=== PATIENT | male | born 1930 ===

== ENCOUNTER 2018-06-13 16:09 | Inpatient (IN) | payer MEDICARE, BC ==
[~2018-06-13] VITALS: Ht 175.3 cm; Wt 94.8 kg
[2018-06-13] MEDS ORDERED: acetaminophen 325mg tablet PO STA (16:38)
[2018-06-13] MEDS ORDERED: normal saline 1000ML IV soln IV ONE (16:40)
[2018-06-13 17:02] LABS: BASOPHILS # (AUTO) 0.1 X10'3 (0-0.2); BASOPHILS % (AUTO) 0.4 % (0-1); EOSINOPHILS % (AUTO) 0 % (0-6); HEMATOCRIT 42.3 % (42.0-52.0); HEMOGLOBIN 13.8 g/dl (14.0-17.9); LYMPHOCYTES # (AUTO) 0.4 X10'3 (1.1-4.8); MEAN CORPUSCULAR HEMOGLOBIN 29.3 PG (27.0-31.0); MEAN CORPUSCULAR HGB CONC 32.8 % (33.0-36.5); MEAN CORPUSCULAR VOLUME 89.3 FL (78-98); MEAN PLATELET VOLUME 6.3 FL (7.4-10.4); MONOCYTES # (AUTO) 0.6 X10'3 (0-0.9); MONOCYTES % (AUTO) 3.2 % (2-12); NEUTROPHILS # (AUTO) 18.9 X10'3 (1.8-7.7); NEUTROPHILS % (AUTO) 94.4 % (42-75); PLATELET COUNT 260 X10'3 (140-440); RED BLOOD COUNT 4.73 X10'6 (4.70-6.10); RED CELL DISTRIBUTION WIDTH 13.3 % (11.5-14.5)
[2018-06-13 17:17] LABS: ALANINE AMINOTRANSFERASE 27 U/L (12-78); ALBUMIN 3.7 G/DL (3.4-5.0); ALKALINE PHOSPHATASE 91 IU/L (46-116); ANION GAP 11 (8-16); ASPARTATE AMINO TRANSFERASE 15 U/L (10-37); BLOOD UREA NITROGEN 22 MG/DL (7-18); BUN/CREATININE RATIO 18.5 (5.4-32.0); CALCIUM 8.7 MG/DL (8.5-10.1); CHLORIDE 96 MMOL/L (99-107); CREATININE 1.19 MG/DL (0.60-1.10); GLUCOSE 142 MG/DL (70-104); POTASSIUM 3.8 MMOL/L (3.5-5.1); SODIUM 130 MMOL/L (135-145); TOTAL CARBON DIOXIDE 23.3 MMOL/L (24-32); TOTAL PROTEIN 7.4 G/DL (6.4-8.2); eGFR 58 ML/MIN
[2018-06-13] MEDS ORDERED: CefTRIAXone 2gm/D5W 50ml 50 ML IV ONE (17:45)
[2018-06-13] MEDS ORDERED: azithromycin/NS 500mg/250ml 250 ML IV ONE (17:45)
[2018-06-13 17:46] LABS: PLATELET ESTIMATE NORMAL; TOTAL CELLS COUNTED 100
[2018-06-13 17:50] LABS: CLARITY,URINE CLEAR (Clear); GLUCOSE, URINE NEGATIVE (Neg); KETONES,URINE TRACE mg/dl (Neg); LEUKOCYTE ESTERASE ,URINE NEGATIVE (Neg); NITRITES, URINE NEGATIVE (Neg); OCCULT BLOOD,URINE SMALL (Neg); PH,URINE 5.5 (4.8-8.0); PROTEIN,URINE 100 mg/dl (Neg)
[2018-06-13 17:52] LABS: COLOR,URINE AMBER (Yellow); UA COLLECTION TYPE VOIDED
[2018-06-13 18:02] LABS: RBC,URINE 0-2 /HPF (0-2); WBC,URINE 0-4 /HPF (0-4)
[2018-06-13 18:03] LABS: BACTERIA,URINE NONE SEEN /HPF (Neg); COARSE GRANULAR CAST 0-3 /LPF (NEGATIVE); MUCUS STRANDS MODERATE /LPF (Neg); SQUAMOUS EPITHELIAL CELL,UR FEW /LPF (FEW)
[2018-06-13] MEDS ORDERED: MELO-100 PO (18:08)
[2018-06-13] MEDS ORDERED: LISI1TAB11 PO (18:08)
[2018-06-13] MEDS ORDERED: SERT25TA PO (18:09)
[2018-06-13] MEDS ORDERED: CHOL10002 PO (18:09)
[2018-06-13] MEDS ORDERED: ASPI-1264 PO (18:10)
[2018-06-13] MEDS ORDERED: ATOR10TA87 PO (18:10)
[2018-06-13] MEDS ORDERED: FISH OIL PO (18:11)
[2018-06-13] MEDS ORDERED: acetaminophen 325mg tablet PO PRN (20:20)
[2018-06-13] MEDS ORDERED: magnesium 1gm/100ml D5W IVPB 100 ML IV PRN (20:20)
[2018-06-13] MEDS ORDERED: magnesium Cl slow-release 64mg tablet PO PRN (20:20)
[2018-06-13] MEDS ORDERED: ondansetron/PF 4mg/2ml inj IV PRN (20:20)
[2018-06-13] MEDS ORDERED: potassium Cl 40MEQ/NS 500ml 500 ML IV PRN ×2 (20:20)
[2018-06-13] MEDS ORDERED: potassium Cl 20 mEq SR tablet PO PRN (20:20)
[2018-06-13] MEDS ORDERED: magnesium 4gm in 100ml NS 100 ML IV PRN (20:20)
[2018-06-13] MEDS: normal saline 1000ml 1,000 ML IV SCH (20:54)
[2018-06-13 21:35] VITALS: BP 157/59
[2018-06-14 03:00] VITALS: BP 125/56
[2018-06-14] MEDS: normal saline 1000ml 1,000 ML IV SCH ×3 (06:17→21:30)
[2018-06-14 06:23] LABS: BASOPHILS % (AUTO) 0.2 % (0-1); EOSINOPHILS % (AUTO) 0 % (0-6); HEMATOCRIT 35.2 % (42.0-52.0); HEMOGLOBIN 12.3 g/dl (14.0-17.9); LYMPHOCYTES # (AUTO) 1.3 X10'3 (1.1-4.8); LYMPHOCYTES % (AUTO) 6.9 % (21-51); MEAN CORPUSCULAR HEMOGLOBIN 30.9 PG (27.0-31.0); MEAN CORPUSCULAR HGB CONC 34.8 % (33.0-36.5); MEAN CORPUSCULAR VOLUME 88.7 FL (78-98); MEAN PLATELET VOLUME 6.6 FL (7.4-10.4); MONOCYTES # (AUTO) 0.9 X10'3 (0-0.9); MONOCYTES % (AUTO) 5.1 % (2-12); NEUTROPHILS # (AUTO) 16.2 X10'3 (1.8-7.7); NEUTROPHILS % (AUTO) 87.8 % (42-75); PLATELET COUNT 202 X10'3 (140-440); RED BLOOD COUNT 3.97 X10'6 (4.70-6.10); RED CELL DISTRIBUTION WIDTH 13.4 % (11.5-14.5); WHITE BLOOD COUNT 18.4 X10'3 (4.5-11.0)
[2018-06-14 06:54] LABS: ALANINE AMINOTRANSFERASE 25 U/L (12-78); ALBUMIN 2.7 G/DL (3.4-5.0); ALBUMIN/GLOBULIN RATIO 0.9 (1.1-1.5); ALKALINE PHOSPHATASE 60 IU/L (46-116); ANION GAP 8 (8-16); ASPARTATE AMINO TRANSFERASE 11 U/L (10-37); BILIRUBIN,TOTAL 1.2 MG/DL (0.1-1.0); BLOOD UREA NITROGEN 18 MG/DL (7-18); BUN/CREATININE RATIO 19.1 (5.4-32.0); CALCIUM 7.5 MG/DL (8.5-10.1); CHLORIDE 101 MMOL/L (99-107); CREATININE 0.94 MG/DL (0.60-1.10); GLUCOSE 109 MG/DL (70-104); MAGNESIUM 1.6 MG/DL (1.5-2.4); POTASSIUM 3.3 MMOL/L (3.5-5.1); SODIUM 133 MMOL/L (135-145); TOTAL PROTEIN 5.8 G/DL (6.4-8.2); eGFR 76 ML/MIN
[2018-06-14 06:56] VITALS: BP 131/65
[2018-06-14] MEDS: aspirin 325mg tablet PO SCH (07:46)
[2018-06-14] MEDS: atorvastatin 10mg tablet PO SCH (07:46)
[2018-06-14] MEDS: sertraline 50mg tablet PO SCH (07:46)
[2018-06-14] MEDS: vitamin D (cholecalciferol) 1,000 unit tablet PO SCH (07:46)
[2018-06-14] MEDS: heparin, porcine 5000 units/ml vial SQ SCH ×2 (07:48→20:06)
[2018-06-14] MEDS: potassium Cl 20 mEq SR tablet PO PRN ×3 (07:48→15:28)
[2018-06-14] MEDS: K and/or MAG REPLACEMENT MC SCH (07:52)
[2018-06-14] MEDS: naproxen 375mg tablet PO SCH ×2 (07:53→20:05)
[2018-06-14 11:00] VITALS: BP 123/53
[2018-06-14] MEDS ORDERED: CefTRIAXone/D5W-Rocephin 1gm 50 ML IV ONE (13:25)
[2018-06-14] MEDS: clindamycin 300mg/D5W 50mL 50 ML IV SCH ×3 (14:00→20:06)
[2018-06-14 15:00] VITALS: BP 151/70
[2018-06-14 18:00] VITALS: BP 140/61
[2018-06-14 22:00] VITALS: BP 117/66
[2018-06-15 02:00] VITALS: BP 124/60
[2018-06-15] MEDS: clindamycin 300mg/D5W 50mL 50 ML IV SCH ×2 (02:15→07:39)
[2018-06-15 06:00] VITALS: BP 132/62
[2018-06-15 06:35] LABS: ANION GAP 7 (8-16); BLOOD UREA NITROGEN 10 MG/DL (7-18); BUN/CREATININE RATIO 12.3 (5.4-32.0); CALCIUM 8.2 MG/DL (8.5-10.1); CHLORIDE 101 MMOL/L (99-107); CREATININE 0.81 MG/DL (0.60-1.10); GLUCOSE 104 MG/DL (70-104); MAGNESIUM 1.8 MG/DL (1.5-2.4); POTASSIUM 3.8 MMOL/L (3.5-5.1); SODIUM 132 MMOL/L (135-145); TOTAL CARBON DIOXIDE 23.6 MMOL/L (24-32); eGFR 90 ML/MIN
[2018-06-15] MEDS: sertraline 50mg tablet PO SCH (07:40)
[2018-06-15] MEDS: atorvastatin 10mg tablet PO SCH (07:40)
[2018-06-15] MEDS: aspirin 325mg tablet PO SCH (07:40)
[2018-06-15] MEDS: naproxen 375mg tablet PO SCH ×2 (07:40→19:46)
[2018-06-15] MEDS: vitamin D (cholecalciferol) 1,000 unit tablet PO SCH (07:40)
[2018-06-15] MEDS: heparin, porcine 5000 units/ml vial SQ SCH ×2 (07:58→19:47)
[2018-06-15] MEDS: K and/or MAG REPLACEMENT MC SCH (08:00)
[2018-06-15 11:00] VITALS: BP 140/59
[2018-06-15 15:00] VITALS: BP 139/57
[2018-06-15] MEDS: ceFAZolin 1GM/D5W- ADD-VANTAGE 50 ML IV SCH ×2 (16:28→23:55)
[2018-06-15] MEDS: normal saline 1000ml 1,000 ML IV SCH (16:28)
[2018-06-15 18:00] VITALS: BP 165/65
[2018-06-15] MEDS: lactobacillus rhamnosus 10,000 MMU CELLS/CAPSULE PO SCH (19:45)
[2018-06-15 22:00] VITALS: BP 139/61
[2018-06-16 02:00] VITALS: BP 162/59
[2018-06-16] MEDS: normal saline 1000ml 1,000 ML IV SCH (05:41)
[2018-06-16 06:38] LABS: ANION GAP 8 (8-16); BLOOD UREA NITROGEN 7 MG/DL (7-18); BUN/CREATININE RATIO 10.3 (5.4-32.0); CALCIUM 8.3 MG/DL (8.5-10.1); CHLORIDE 101 MMOL/L (99-107); CREATININE 0.68 MG/DL (0.60-1.10); GLUCOSE 98 MG/DL (70-104); MAGNESIUM 1.9 MG/DL (1.5-2.4); POTASSIUM 3.4 MMOL/L (3.5-5.1); SODIUM 136 MMOL/L (135-145); eGFR > 90 ML/MIN
[2018-06-16 07:00] VITALS: BP 178/69
[2018-06-16] MEDS: naproxen 375mg tablet PO SCH ×2 (08:40→20:01)
[2018-06-16] MEDS: sertraline 50mg tablet PO SCH (08:40)
[2018-06-16] MEDS: vitamin D (cholecalciferol) 1,000 unit tablet PO SCH (08:40)
[2018-06-16] MEDS: atorvastatin 10mg tablet PO SCH (08:40)
[2018-06-16] MEDS: lactobacillus rhamnosus 10,000 MMU CELLS/CAPSULE PO SCH ×2 (08:40→20:01)
[2018-06-16] MEDS: ceFAZolin 1GM/D5W- ADD-VANTAGE 50 ML IV SCH ×3 (08:40→23:15)
[2018-06-16] MEDS: aspirin 325mg tablet PO SCH (08:40)
[2018-06-16] MEDS: heparin, porcine 5000 units/ml vial SQ SCH ×2 (08:41→20:02)
[2018-06-16] MEDS: potassium Cl 20 mEq SR tablet PO PRN (08:51)
[2018-06-16] MEDS: K and/or MAG REPLACEMENT MC SCH (08:52)
[2018-06-16 11:00] VITALS: BP 117/58
[2018-06-16 15:00] VITALS: BP 141/59
[2018-06-16 15:05] LABS: BASOPHILS % (AUTO) 0.2 % (0-1); EOSINOPHILS # (AUTO) 0.3 X10'3 (0-0.9); EOSINOPHILS % (AUTO) 3.2 % (0-6); HEMOGLOBIN 11.6 g/dl (14.0-17.9); LYMPHOCYTES % (AUTO) 9.3 % (21-51); MEAN CORPUSCULAR HEMOGLOBIN 30.3 PG (27.0-31.0); MEAN CORPUSCULAR HGB CONC 34.2 % (33.0-36.5); MEAN CORPUSCULAR VOLUME 88.6 FL (78-98); MEAN PLATELET VOLUME 6.9 FL (7.4-10.4); MONOCYTES # (AUTO) 0.8 X10'3 (0-0.9); MONOCYTES % (AUTO) 7.3 % (2-12); NEUTROPHILS # (AUTO) 8.5 X10'3 (1.8-7.7); PLATELET COUNT 222 X10'3 (140-440); RED BLOOD COUNT 3.84 X10'6 (4.70-6.10); RED CELL DISTRIBUTION WIDTH 14.5 % (11.5-14.5); WHITE BLOOD COUNT 10.6 X10'3 (4.5-11.0)
[2018-06-16 19:00] VITALS: BP 153/71
[2018-06-16 23:00] VITALS: BP 146/64
[2018-06-17] VITALS (7 sets, daily range): BP systolic 132–171; BP diastolic 59–73
[2018-06-17 05:32] LABS: BASOPHILS % (AUTO) 0.4 % (0-1); EOSINOPHILS # (AUTO) 0.3 X10'3 (0-0.9); EOSINOPHILS % (AUTO) 3.2 % (0-6); HEMATOCRIT 34.2 % (42.0-52.0); HEMOGLOBIN 11.6 g/dl (14.0-17.9); LYMPHOCYTES # (AUTO) 1.2 X10'3 (1.1-4.8); LYMPHOCYTES % (AUTO) 12.2 % (21-51); MEAN CORPUSCULAR VOLUME 88.2 FL (78-98); MEAN PLATELET VOLUME 6.9 FL (7.4-10.4); MONOCYTES # (AUTO) 0.9 X10'3 (0-0.9); MONOCYTES % (AUTO) 8.7 % (2-12); NEUTROPHILS # (AUTO) 7.6 X10'3 (1.8-7.7); NEUTROPHILS % (AUTO) 75.5 % (42-75); PLATELET COUNT 226 X10'3 (140-440); RED BLOOD COUNT 3.87 X10'6 (4.70-6.10); RED CELL DISTRIBUTION WIDTH 14.1 % (11.5-14.5); WHITE BLOOD COUNT 10.1 X10'3 (4.5-11.0)
[2018-06-17 05:42] LABS: ALBUMIN 2.6 G/DL (3.4-5.0); ANION GAP 8 (8-16); BLOOD UREA NITROGEN 8 MG/DL (7-18); BUN/CREATININE RATIO 12.5 (5.4-32.0); CHLORIDE 102 MMOL/L (99-107); CREATININE 0.64 MG/DL (0.60-1.10); GLUCOSE 97 MG/DL (70-104); MAGNESIUM 1.8 MG/DL (1.5-2.4); POTASSIUM 3.5 MMOL/L (3.5-5.1); SODIUM 136 MMOL/L (135-145); TOTAL CARBON DIOXIDE 25.8 MMOL/L (24-32); eGFR > 90 ML/MIN
[2018-06-17] MEDS: K and/or MAG REPLACEMENT MC SCH (08:00)
[2018-06-17] MEDS: aspirin 325mg tablet PO SCH (08:12)
[2018-06-17] MEDS: vitamin D (cholecalciferol) 1,000 unit tablet PO SCH (08:12)
[2018-06-17] MEDS: naproxen 375mg tablet PO SCH ×2 (08:12→19:49)
[2018-06-17] MEDS: atorvastatin 10mg tablet PO SCH (08:12)
[2018-06-17] MEDS: ceFAZolin 1GM/D5W- ADD-VANTAGE 50 ML IV SCH ×2 (08:12→16:24)
[2018-06-17] MEDS: lactobacillus rhamnosus 10,000 MMU CELLS/CAPSULE PO SCH ×2 (08:12→19:49)
[2018-06-17] MEDS: sertraline 50mg tablet PO SCH (08:12)
[2018-06-17] MEDS: heparin, porcine 5000 units/ml vial SQ SCH ×2 (08:13→19:50)
[2018-06-17] MEDS: normal saline 1000ml 1,000 ML IV SCH ×2 (10:57→16:27)
[2018-06-17] MEDS: lisinopril 20mg tablet PO SCH (13:25)
[2018-06-17] MEDS: HYDROchlorothiazide 12.5mg capsule PO SCH (13:25)
[2018-06-18] MEDS: ceFAZolin 1GM/D5W- ADD-VANTAGE 50 ML IV SCH ×2 (00:09→08:16)
[2018-06-18 02:00] VITALS: BP 153/95
[2018-06-18 05:50] LABS: ALBUMIN 2.7 G/DL (3.4-5.0); ANION GAP 4 (8-16); BLOOD UREA NITROGEN 9 MG/DL (7-18); BUN/CREATININE RATIO 12.7 (5.4-32.0); CALCIUM 8.3 MG/DL (8.5-10.1); CHLORIDE 99 MMOL/L (99-107); CREATININE 0.71 MG/DL (0.60-1.10); GLUCOSE 101 MG/DL (70-104); POTASSIUM 3.4 MMOL/L (3.5-5.1); SODIUM 132 MMOL/L (135-145); TOTAL CARBON DIOXIDE 29.4 MMOL/L (24-32); eGFR > 90 ML/MIN
[2018-06-18] MEDS ORDERED: potassium Cl 40MEQ/NS 500ml 500 ML IV PRN ×2 (07:05)
[2018-06-18] MEDS ORDERED: potassium Cl 20 mEq SR tablet PO PRN ×2 (07:05)
[2018-06-18] MEDS ORDERED: FISH OIL PO SCH ×2 (08:00)
[2018-06-18] MEDS: atorvastatin 10mg tablet PO SCH (08:16)
[2018-06-18] MEDS: aspirin 325mg tablet PO SCH (08:16)
[2018-06-18] MEDS: lactobacillus rhamnosus 10,000 MMU CELLS/CAPSULE PO SCH (08:16)
[2018-06-18] MEDS: HYDROchlorothiazide 12.5mg capsule PO SCH (08:17)
[2018-06-18] MEDS: lisinopril 20mg tablet PO SCH (08:17)
[2018-06-18] MEDS: naproxen 375mg tablet PO SCH (08:18)
[2018-06-18] MEDS: sertraline 50mg tablet PO SCH (08:18)
[2018-06-18] MEDS: vitamin D (cholecalciferol) 1,000 unit tablet PO SCH (08:18)
[2018-06-18] MEDS: heparin, porcine 5000 units/ml vial SQ SCH (08:22)
[2018-06-18] MEDS: K and/or MAG REPLACEMENT MC SCH (08:34)
[2018-06-18] MEDS ORDERED: CEPH500C5 PO (11:43)
== END 2018-06-18 14:51 | disposition home or self-care (01) | DRG 871 ==
LOC: ER 16:10 → ED HOLD 20:17 → PCU 3S 21:22
PROVIDERS: ADMIT Internal Medicine; ATTEND Family Medicine
PROC: 5A09357 Assistance with Respiratory Ventilation, Less than 24 Consecutive Hours, Continuous Positive Airway Pressure (ICD-10-PCS; principal; 2018-06-14)
DX: A41.9 Sepsis, unspecified organism (principal); G92 Toxic encephalopathy; L03.115 Cellulitis of right lower limb; N39.0 Urinary tract infection, site not specified; E87.1 Hypo-osmolality and hyponatremia; N17.9 Acute kidney failure, unspecified; R65.20 Severe sepsis without septic shock; E11.9 Type 2 diabetes mellitus without complications; E78.5 Hyperlipidemia, unspecified; F03.90 Unspecified dementia, unspecified severity, without behavioral disturbance, psychotic disturbance, mood disturbance, and anxiety; H91.90 Unspecified hearing loss, unspecified ear; F32.9 Major depressive disorder, single episode, unspecified; E86.0 Dehydration; I10 Essential (primary) hypertension; Z85.46 Personal history of malignant neoplasm of prostate; Z86.73 Personal history of transient ischemic attack (TIA), and cerebral infarction without residual deficits; Z79.899 Other long term (current) drug therapy
CPT/HCPCS: 36415; 70450; 71045; 80048; 80053; 81001; 83036; 83605; 83735; 84145; 85025; 87040; 87070; 93005; 93971; 94760; 99285; A6258; J0456; J0690; J0696; J1644; J7030; X5958